=== PATIENT | male | born 1990 | race Caucasian/White ===

== ENCOUNTER 2025-01-29 10:44 | Emergency (ER) | payer OTHER, SELFPAY ==
[2025-01-29 10:57] VITALS: BP 140/90; PULSE 98; RESP 14; TEMP 36.4; O2SAT 96; BMI 33.0
[2025-01-29 11:23] LABS: Add Manual Diff / Slide Review NO; Hematocrit 42.5 % (41-53); Hemoglobin 14.9 g/dL (13.5-17.5); Lymphocytes Absolute Auto 1900 /uL (1100-4500); Mean Corpuscular HGB Conc 35.1 % (30-36); Mean Corpuscular Hemoglobin 30.9 PG (26-34); Mean Corpuscular Volume 88.1 fL (80-100); Platelet Count 249 X10^3/uL (150-400)
[2025-01-29 11:30] LABS: INR 1.0 (0.9-1.3); Prothrombin Time 11.6 SECONDS (9.4-12.5)
[2025-01-29 11:33] LABS: PTT Partial Thromboplastin Tim 31 SECONDS (25.1-36.5)
[2025-01-29 11:34] LABS: Alanine Aminotransferase 91 IU/L (<50); Albumin 4.8 g/dL (3.5-5.0); Albumin Globulin Ratio 1.7 (1.0-2.8); Alkaline Phosphatase 55 U/L (38-126); Blood Urea Nitrogen 12 mg/dL (9-20); Calcium 9.6 mg/dL (8.4-10.2); Carbon Dioxide 25 mmol/L (22-32); Chloride 107 mmol/L (98-107); Estimated Glomerular Filt Rate > 60 mL/min (>60); Globulin 2.9 g/dL (1.7-4.1); Glucose 98 mg/dL (70-99); HEMOLYSIS < 15 (0-50); Potassium 4.0 mmol/L (3.4-5.1); Sodium 142 mmol/L (137-145); Total Protein 7.7 g/dL (6.3-8.2)
--- NOTE | 2025-01-29 11:39 | DI.CT.S_ITS ---
PROCEDURE: CT ABDOMEN PELVIS W CON INDICATIONS: blood in stool TECHNIQUE: After the administration of intravenous contrast, axial sections acquired from the lung bases to the pubic symphysis. Coronal and sagittal reformats were performed. For radiation dose reduction, the following was used: automated exposure control, adjustment of mA and/or kV according to patient size. COMPARISON: None. FINDINGS: Image quality: Diagnostic. Lower Chest: No significant findings. Small incidental hiatal hernia. ABDOMEN: Liver: Fatty infiltration of the liver. No mass, intrahepatic biliary dilation or cirrhosis. Portal vein is patent. Right liver measures 20.1 cm in length. Gallbladder: No radiopaque gallstones or wall thickening. Biliary ducts: No biliary dilation. Pancreas: No ductal dilation. Spleen: Enlarged spleen measures 13.5 cm in the oblique anterior to posterior diameter. Adrenal Glands: 7 mm left adrenal nodule containing macroscopic fat. Otherwise, adrenal glands are normal. Kidneys and Ureters: No hydronephrosis. No solid mass. No complex renal cystic lesion which requires follow up. Stomach and Bowel: Normal colonic caliber, without significant wall thickening. Colon diverticulosis is noted without inflammatory changes concerning for acute diverticulitis. Normal appendix. Peritoneum: No abnormal intraperitoneal fluid. No free air. Ventral Wall: No significant ventral hernia. Abdominal Nodes: No retroperitoneal or mesenteric adenopathy by size criteria. Vessels: Aorta and inferior vena cava are normal in size. PELVIS: Pelvic Organs: Mildly prominent seminal vesicles. Otherwise unremarkable. Bladder: No bladder wall thickening, accounting for underdistention. Pelvic Nodes: No enlarged lymph nodes. Miscellaneous: Small right fat containing no hernia. No significant left inguinal hernia. Bones: No aggressive osseous abnormality. Moderate L5-S1 degenerative disc disease. IMPRESSION: Diverticulosis. Normal appendix. No inflammation. Hepatic steatosis with mild paddle splenomegaly. 7 mm left adrenal myelolipoma. Dictated by: Lesley Abrue M.D. on 01/29/2025 at 12:01 Approved by: Lesley Abreu M.D. on 01/29/2025 at 12:08
--- NOTE | 2025-01-29 11:40 | ED.ABDPAIN ---
HPI - Abdominal Pain General Chief Complaint: Abdominal Pain Stated Complaint: abd cramping, blood in stool Time Seen by Provider: 01/29/25 11:11 Source: patient Mode of arrival: Ambulatory History of Present Illness HPI narrative: 34-year-old male with no reported past medical history presents to the ED with 1 day of bright red blood in stools. Patient states that he has been somewhat constipated for the last week, had a bowel movement early this a.m. where he saw bright red blood in the stool. A couple hours later, patient had another bowel movement which showed dark red blood. Patient also saw blood and what he thought was a blood clot when he wiped after the bowel movement. No history of hemorrhoids. Patient does endorse on and off chronic constipation. Patient endorses slight nausea, lightheadedness, which he thinks might also be because he was on the water. Patient also endorses some prior abdominal cramping which has now resolved. Patient is endorsing pressure in the abdomen. No fever, chills, chest pain, shortness of breath, vomiting, dysuria, syncope. No prior abdominal surgeries. Related Data Allergies Allergy/AdvReac Type Severity Reaction Status Date / Time No Known Drug Allergies Allergy Verified 01/29/25 10:57 Review of Systems Constitutional Constitutional: Denies chills, Denies fatigue, Denies fever(s), Denies frequent falls, Denies lethargy and Denies weakness Eyes Eyes: Denies change in vision, Denies eye discharge, Denies irritation and Denies loss of vision ENT Ears, Nose, Mouth, and Throat: Denies change in voice, Denies dizziness, Denies neck pain, Denies sore throat and Denies throat swelling Cardiovascular Cardiovascular: Denies chest pain, Denies irregular heart rhythm, Denies lightheadedness, Denies palpitations, Denies dyspnea, Denies dyspnea on exertion and Denies orthopnea Respiratory Respiratory: Denies cough, Denies dyspnea, Denies dyspnea on exertion and Denies wheezing Gastrointestinal Gastrointestinal: Denies abdominal pain, Reports hematochezia, Denies change in bowel habits, Reports constipation, Reports cramping, Denies diarrhea, Denies nausea and Denies vomiting Musculoskeletal Musculoskeletal: Denies neck pain and Denies numbness Integumentary/Breasts Skin/Breast: Denies pruritus, Denies erythema, Denies rash and Denies wounds Neurologic Neurologic: Denies behavioral changes, Denies confusion, Denies dizziness, Denies frequent falls, Denies loss of vision, Denies numbness and Denies weakness Psychiatric Psychiatric: Denies anxiety, Denies behavioral changes, Denies confusion, Denies depression, Denies homicidal ideation and Denies suicidal ideation Endocrine Endocrine: Denies fatigue, Denies flushing and Denies palpitations Hematologic/Lymphatic Hematologic/Lymphatic: Denies easy bruising Allergic/Immunologic Allergic/Immunologic: Denies urticaria, Denies throat swelling and Denies wheezing Patient History tobacco type: smokeless tobacco Exam Narrative Exam Narrative: Const General:?cooperative, healthy appearing and comfortable [facility] Head:?normal to inspection Ears:?hearing grossly normal bilaterally Nose:?external nose normal Face and sinus:?normal facial exam and sinuses nontender Mouth:?oral mucosae normal Throat:?posterior oropharynx normal Eyes General:?appearance normal, both eyes and all related structures Neck Neck:?normal visual inspection and no lymphadenopathy noted Resp Effort & Inspection:?normal respiratory effort Auscultation:?clear to auscultation bilaterally Cardio Rate:?regular rate Rhythm:?regular rhythm GI Abdomen is soft, nondistended, mildly tender to palpation. Neuro General:?patient alert, patient awake and patient oriented x3 Initial Vital Signs Initial Vital Signs: Vital Signs Temperature 97.6 F 01/29/25 10:57 Pulse Rate 98 H 01/29/25 10:57 Respiratory Rate 14 01/29/25 10:57 Blood Pressure 140/90 01/29/25 10:57 Pulse Oximetry 96 01/29/25 10:57 Oxygen Delivery Method Room Air 01/29/25 10:57 Course Orders Ordered: ED Orders 01/29/25 11:12 Complete Blood Count AUTO DIFF Stat Comprehensive Metabolic Panel Stat PTT Partial Thromboplastin Eddi Stat Prothrombin Time INR Stat 01/29/25 11:27 Type and Screen Stat 01/29/25 11:39 CT abdomen pelvis w con Stat Ondansetron HCl (Ondansetron 4 Mg/2 Ml Inj) 4 mg IV NOW PRN PRN Reason: Nausea And Vomiting Ondansetron HCl (Ondansetron 4 Mg Odt) 4 mg PO NOW PRN PRN Reason: Nausea And Vomiting Vital Signs Vital signs: Vital Signs - 8 hr 01/29/25 10:57 Temperature 97.6 F Pulse Rate 98 H Respiratory Rate 14 Blood Pressure 140/90 Pulse Oximetry 96 Oxygen Delivery Method Room Air MDM - Abdominal Pain Lab Data 01/29/25 11:12 01/29/25 11:12 Labs: Lab Results 01/29/25 01/29/25 Range/Units 11:12 11:27 WBC 5.6 (4.5-11.0) X10^3/uL RBC 4.82 (4.5-5.9) X10^6/uL Hgb 14.9 (13.5-17.5) g/dL Hct 42.5 (41-53) % MCV 88.1 (80-100) fL MCH 30.9 (26-34) PG MCHC 35.1 (30-36) % RDW 13.0 (11.6-14.8) % Plt Count 249 (150-400) X10^3/uL Neut % (Auto) 55.8 (50-75) % Lymph % (Auto) 33.6 (25-40) % [place] % (Auto) 7.7 (3-14) % Eos % (Auto) 0.8 L (2-4) % Baso % (Auto) 2.1 H (0-2) % Neut # (Auto) 3100 (4764-8968) /uL Lymph # (Auto) 1900 (6991-4749) /uL [place] # (Auto) 400 (0-900) /uL Eos # (Auto) 0 (0-450) /uL Baso # (Auto) 100 (0-100) /uL PT 11.6 (9.4-12.5) SECONDS INR 1.0 (0.9-1.3) APTT 31 (25.1-36.5) SECONDS Sodium 142 (137-145) mmol/L Potassium 4.0 (3.4-5.1) mmol/L Chloride 107 (98-107) mmol/L Carbon Dioxide 25 (22-32) mmol/L BUN 12 (9-20) mg/dL Creatinine 0.80 (0.66-1.25) mg/dL Estimated GFR > 60 (>60) mL/min BUN/Creatinine Ratio 15.0 (6-22) Glucose 98 (70-99) mg/dL Calcium 9.6 (8.4-10.2) mg/dL Total Bilirubin 1.3 (0.2-1.3) mg/dL AST 44 (17-59) IU/L ALT 91 H (<50) IU/L Alkaline Phosphatase 55 (38-126) U/L Total Protein 7.7 (6.3-8.2) g/dL Albumin 4.8 (3.5-5.0) g/dL Globulin 2.9 (1.7-4.1) g/dL Albumin/Globulin Ratio 1.7 (1.0-2.8) Blood Type O Positive Antibody Screen Negative Point of care testing: Urine Dip Bedside Urine Glucose Negative Bedside Urine Bilirubin - Negative Bedside Urine Ketone - Negative Urine Specific [place] 1.02 Bedside Urine Occult Blood - Negative Bedside Urine pH 6.0 Bedside Urine Protein - Negative Bedside Urine Urobilinogen - Negative Bedside Urine Nitrite - Negative Bedside Urine Leukocytes - Negative Esterase MDM Narrative Medical decision making narrative: 34-year-old male with no reported past medical history presents to the ED with 1 day of bright red blood in stools. Concern for constipation versus hemorrhoids versus diverticulitis versus gastroenteritis versus other intra-abdominal pathology versus other. Will obtain labs, UA, CT abdomen pelvis. Will reassess. Labs within normal limits. UA without UTI. CT abdomen pelvis shows diverticulosis. Normal appendix. No inflammation. Hepatic steatosis with mild paddle splenomegaly. 7 mm left adrenal myelolipoma. Discussed findings with patient. Recommend good bowel regimen with plenty of hydration, fiber to avoid constipation. Recommend nightly MiraLax. Recommend follow-up with PCP as soon as possible for further evaluation. ED return precautions discussed with patient. Patient verbalized understanding. Medical records reviewed: Yes Discharge Plan Departure Patient Disposition: Home Clinical Impression: Bloody stool Instructions: DI for Constipation Activity Restrictions/Additional Instructions: You were evaluated in the emergency department today for blood in the stool. Your labs, urine, CT scans were normal. Your symptoms are most likely due to constipation, hemorrhoids. It is recommended that you follow a bowel regimen with nightly MiraLax, plenty of water. Please follow-up with your PCP as soon as possible for further evaluation. Return to the emergency department if you have worsening symptoms. Stand Alone Forms: Patient Portal/API
[2025-01-29 15:17] VITALS: BP 141/80; PULSE 98; RESP 16; O2SAT 99
== END 2025-01-29 15:17 | disposition home or self-care (01) ==
PROVIDERS: Emergency Medicine; Emergency Provider Student in an Organized Health Care Education/Training Program
DX: K62.5 Hemorrhage of anus and rectum (principal); K57.30 Diverticulosis of large intestine without perforation or abscess without bleeding
CPT/HCPCS: 36415; 74177; 80053; 81003; 85025; 85610; 85730; 86850; 86900; 86901; 99283; 99284; Q9967